=== PATIENT | male | born 1995 | race Caucasian/White ===

== ENCOUNTER 2018-04-04 17:23 | Emergency (ER) | payer OTHER ==
[2018-04-04 17:31] VITALS: BP 135/71; PULSE 85; TEMP 98.9; BMI 34.8
[2018-04-04] MEDS ORDERED: IBUPROFEN 400 MG TABLET (FP) PO ONE ×2 (17:55→18:01)
--- NOTE | 2018-04-04 17:59 | PDOC ---
History of Present Illness - General Chief Complaint: Injury Stated Complaint: left knee pain Time Seen by Provider: 04/04/18 17:36 - History of Present Illness Initial Comments: 04/04/18 18:07 Chief complaint: Left knee pain History of present illness: Slipped on the ice yesterday, twisted his left knee. Pain and swelling since then. Ambulating but with moderate limp. Review of systems: Denies distal numbness tingling pain or weakness of the lower leg. Denies any other injuries or pain including injuries or pain to the neck had chest abdomen spine pelvis or other extremities Past medical history: Torn left anterior cruciate ligament, no surgery. Otherwise no active medical or surgical problems Social/family history reviewed and noncontributory Physical exam: Alert and oriented well-developed well-nourished no acute distress cheerful and cooperative Afebrile, vital signs normal Left knee: There is a [id number] effusion. There is no deformity. No erythema or warmth. Evaluation of the ligaments is limited due to guarding and spasm. However, there is no point tenderness over the medial or lateral collaterals. There is a suspected laxity of the ACL with the Lockman lacking a firm endpoint. Distal pulses full. No distal sensory or motor deficits. Range of motion of the knee appears intact, but somewhat limited in flexion due to the effusion. Impression: Sprain versus tear ACL. Rule out fracture Plan: X-ray. If no fracture, Bryon and knee immobilizer, rest ice and Motrin, orthopedic follow-up. Past History - Past Medical History Allergies/Adverse Reactions: Allergies Allergy/AdvReac Type Severity Reaction Status Date / Time No Known Allergies Allergy Verified 04/04/18 17:24 Home Medications: Ambulatory Orders Ibuprofen 800 mg PO TID #20 tablet 04/04/18 Asthma: Yes COPD: No - Suicide/Smoking/Psychosocial Hx Smoking Status: No Smoking History: Current some day smoker Have you smoked in the past 12 months: Yes Number of Cigarettes Smoked Daily: 1 Information on smoking cessation initiated: No 'Breaking Loose' booklet given: 11/27/15 Hx Alcohol Use: No Drug/Substance Use Hx: No *Physical Exam - Vital Signs Last Vital Signs Temp Pulse Resp BP Pulse Ox 98.9 F 85 20 135/71 98 04/04/18 17:23 04/04/18 17:23 04/04/18 17:23 04/04/18 17:23 04/04/18 17:23 Moderate Sedation - Procedure Monitoring Vital Signs: Procedure Monitoring Vital Signs Temperature 98.9 F 04/04/18 17:23 Pulse Rate 85 04/04/18 17:23 Respiratory Rate 20 04/04/18 17:23 Blood Pressure 135/71 04/04/18 17:23 O2 Sat by Pulse Oximetry (%) 98 04/04/18 17:23 Medical Decision Making - Medical Decision Making 04/04/18 18:34 X-ray negative Bryon wrap applied. Immobilizer. Patient adequately ambulatory. Ibuprofen to pharmacy. Orthopedic referral. Discharge with significant other in no significant pain. *DC/Admit/Observation/Transfer Diagnosis at time of Disposition: Sprain of knee, cruciate ligament Qualifiers: Encounter type: initial encounter Laterality: left Qualified Code(s): S83.502A - Sprain of unspecified cruciate ligament of left knee, initial encounter - Discharge Dispostion Disposition: HOME Condition at time of disposition: Improved Decision to Admit order: No - Prescriptions Prescriptions: Ibuprofen 800 mg PO TID #20 tablet - Referrals Referrals: Merrick Ramirez MD [Staff Physician] - 1 week - Patient Instructions Printed Discharge Instructions: DI for Knee Sprain, How to Apply an Bryon Wrap, How to Use a Knee Immobilizer - Post Discharge Activity Forms/Work/School Notes: Back to Work
== END 2018-04-04 18:41 | disposition home or self-care (01) ==
LOC: FER 17:23
PROC: 2W3RX1Z Immobilization of Left Lower Leg using Splint (ICD-10-PCS; principal; 2018-04-04)
DX: S83.502A Sprain of unspecified cruciate ligament of left knee, initial encounter (principal); W00.0XXA Fall on same level due to ice and snow, initial encounter; Y93.89 Activity, other specified; Y92.89 Other specified places as the place of occurrence of the external cause
CPT/HCPCS: 73560-TC-LT-FY; 99282-25

== ENCOUNTER 2018-10-17 05:16 | Day surgery (SDC) | payer OTHER ==
[2018-10-08 13:27] VITALS: BMI 34.8
[2018-10-17] MEDS ORDERED: DEXAMETHASONE SOD PHOSPHATE/PF 10 MG/ML SDV ONE (07:02)
[2018-10-17] MEDS ORDERED: BUPIVACAINE HCL/PF 0.5% (5 MG/ML) 30 ML VIAL IJ ONE (07:02)
[2018-10-17] MEDS ORDERED: MIDAZOLAM HCL 2 MG/2 ML SINGLE DOSE VIAL ONE ×2 (07:24)
[2018-10-17] MEDS ORDERED: PROPOFOL 20 ML ONE ×3 (08:24→08:33)
[2018-10-17] MEDS ORDERED: HYDROmorphone HCl 2 MG/ML VIAL ONE ×2 (08:33→09:13)
[2018-10-17] MEDS ORDERED: oxyCODONE HCL 5 MG TABLET PO PRN (09:27)
[2018-10-17] MEDS ORDERED: ONDANSETRON 4 MG/2 ML VIAL IVPUSH PRN (09:27)
[2018-10-17] MEDS ORDERED: LACTATED RINGERS SOLUTION 1,000 ML IV SCH (09:30)
--- NOTE | 2018-10-17 10:14 | HP ---
[facility] - Chief Complaint Chief Complaint: left knee pain/instability - Past Medical History Allergies/Adverse Reactions: Allergies Allergy/AdvReac Type Severity Reaction Status Date / Time No Known Allergies Allergy Verified 10/17/18 06:35 - Current Medications Current Medications: Home Medications Medication Instructions Recorded Cetirizine HCl [Zyrtec -] 10 mg PO DAILY 10/08/18 Dupilumab [Dupixent] 300 mg SQ ASDIR 10/08/18 Oxycodone HCl/Acetaminophen 1 - 2 tab PO Q6H #30 tab MDD 6 10/17/18 [Percocet 5-325 mg Tablet] Satellite Physical Exam - Physical Examination Vital Signs: Vital Signs Period Temp Pulse Resp BP Sys/Jung Pulse Ox Last 24 Hr 98.4 F 84 16 134/75 98 General Appearance: Well Nourished, Well Developed, Alert & Oriented x3 ENT: Clear Lung: Normal air movement Heart: Regular rate & rhythm Extremities: Other (left knee- + swelling, + ttp, + macey, + ant draw, + pivot , nvi, MRI + acl tear) Neurological: Intact, Alert, Oriented Satellite Impression/Plan - Impression/Plan Impression: left knee acl tear Operative Procedure: left knee arthroscopy with ACL reconstruction using BTB autograft Date to be Performed: 10/17/18
--- NOTE | 2018-10-17 10:15 | OP ---
Operative Note - Note: Operative Date: 10/17/18 ([facility]) Pre-Operative Diagnosis: left knee acl tear Operation: left knee arthroscopy with ACL reconstruction using BTB autograft Post-Operative Diagnosis: Same as Pre-op Surgeon: Alessandro King Irrigation Installation Specialist: Woody Pickett ([facility]) Anesthesia: General, Local Specimens Removed: shavings Estimated Blood Loss (mls): 5 (tourniquet) Operative Report Dictated: Yes
[2018-10-17 12:38] VITALS: TEMP 98
[2018-10-17] MEDS ORDERED: oxyCODONE HCL 5 MG TABLET ONE (12:47)
[2018-10-17] MEDS ORDERED: CEFAZOLIN 3 GM in DEXTROSE 5%-WATER 100 ML IVPB ONE (13:00)
[2018-10-17 15:31] VITALS: BP 144/55; PULSE 100
--- NOTE | 2018-10-17 16:53 | OP ---
DATE OF OPERATION: 10/17/2018 PREOPERATIVE DIAGNOSIS: Left anterior cruciate ligament tear. POSTOPERATIVE DIAGNOSIS: Left anterior cruciate ligament tear. PROCEDURE: Left anterior cruciate ligament reconstruction with [id number] autograft harvesting. SURGICAL ATTENDING: Alessandro iKng MD CHIEF MEDICAL OFFICER: AALIYAH Cormier SECOND SAP TREASURY CONSULTANT: Elroy Wasserman MD ANESTHESIA: Regional and general. CLOSURE: Arthrex metallic interference screw fixation for graft, 0 Vicryl for tendon, 2-0 Vicryl for paratenon, 3-0 Monocryl for skin with skin glue. DESCRIPTION OF PROCEDURE: Patient was taken to the operating room on October 17, 2018. General anesthesia and regional was administered by the anesthesiologist. IV Kefzol administered prophylactically prior to the case. Well-padded pneumatic tourniquet was placed on the left proximal thigh. The left lower extremity was prepped and draped in the usual sterile fashion. Prior to surgery, the patient's exam consisted of a 2+ Grupo, 2+ pivot shift, and good stability varus, valgus. First, the graft was harvested. A 6-cm longitudinal midline incision centered over the patella tendon was incised. Hemostasis achieved with Bovie cautery. Sharp dissection was carried down from the mid tibial tubercle to the mid patella with sufficient flaps laterally to expose the tendon. Central 10 mm of the tendon was harvest using a 10-mm double blade, 10 x 25-mm plugs were harvested both from the tibia and from the patella using micro oscillating saw. Two drill holes were placed through each of the plugs and passage of No. 2 FiberWire traction sutures were applied. Graft was fashioned to snugly fit through a 10-mm sizer and was placed on the back table for later use. The rent in the patella tendon was closed using No. 1 Vicryl suture. An L was made in the periosteum 1 cm medial to the tibial tubercle for later tibial tunnel placement. Next, the arthroscopic portion of the case was performed. Superolateral and medial lateral infrapatellar portal sites were then made with a 15 blade flat, blunt trocar. The infrapatellar portals were made through the previously made incision. Outflow trocar was superolaterally, scope trocar was inferolaterally, and the working portal was inferomedial portal. The pouch was visualized to be clean. The medial and lateral gutters were visualized to be clean. The undersuface of the patella and trochlea were visualized to be intact. With valgus stress on the knee, the medial compartment was entered. The medial meniscus was visualized and probed, found to be intact. The medial femoral condyle was run and found to be intact as was the medial tibial plateau. In a [id number] position, lateral compartment was entered. Lateral meniscus was visualized and probed and found to be intact. The lateral femoral condyle was run and found to be intact as was the lateral tibial plateau. At 90 degrees, the ACL was found to be completely deficient and torn. Its stump was debrided using a shaver. A notchplasty was then performed gaining sufficient width and height to perform the procedure and to visualize the appropriate femoral tunnel position. Using a 10-mm Retrocutter, a 10-mm diameter tunnel was made just anterior to the PCL. All bone fragments were debrided out of the knee using the shaver. Any soft tissue in and around the hole was additionally debrided arthroscopically. A carrot was then placed in the tunnel to allow pressurization of the joint. With the knee flexed to 120 degrees, an was placed through the AM portal in the appropriate aspect of the notch using the 7-mm offset guide until it exited the anterolateral distal thigh. It was overreamed with a 10-mm flat reamer. All bone fragments were removed. Excellent position posteriorly was visualized with a good posterior wall. A Shuttle stitch was placed through the eyelet holes of each pin so it excited the anterolateral distal thigh and was then pulled down the tibial tunnel exiting the tibia. The traction stitch was then used to pull the graft up into the knee. An 8 x 25-mm femoral screw with a sheath was used to fixate the femoral screw. This was done with the knee flexed at 120 degrees. Excellent fixation was obtained. The knee was taken through a range of motion so as not to impinge on the PCL and on the notch throughout range of motion. With a 20-degree position of the knee and posterior drawer being applied, a 9 x 25-mm fully threaded tibial screw was placed between the tibial bone plug and the tibial tunnel achieving excellent fixation. The knee was taken through a range of motion and found to have full extension to full flexion, negative Grupo, negative pivot shift, negative anterior drawer, and no impingement on the notch throughout. The knee was drained of the fluid. The donor sites were packed with StimuBlast putty. The peritenon was closed using 2-0 Vicryl. The periosteum for the tibial tunnel was closed using 0 Vicryl. Subcutaneous was closed using 2-0 Vicryl and 3-0 Monocryl subcuticular with skin glue for skin, 4-0 undyed Vicryl for the superolateral outflow portal once the trocar was pulled. Sterile pressure dressing followed by a knee immobilizer was applied. Total tourniquet time was less than an hour. No complications. Saige [id number]
== END 2018-10-17 14:30 | disposition home or self-care (01) ==
LOC: JASU-SURG 05:16
PROVIDERS: ATTEND Orthopaedic Surgery
PROC: 0QUF07Z Supplement Left Patella with Autologous Tissue Substitute, Open Approach (ICD-10-PCS; 2018-10-17)
PROC: 0MSP4ZZ Reposition Left Knee Bursa and Ligament, Percutaneous Endoscopic Approach (ICD-10-PCS; principal; 2018-10-17 08:49)
DX: S83.512A Sprain of anterior cruciate ligament of left knee, initial encounter (principal); X58.XXXA Exposure to other specified factors, initial encounter; Y93.9 Activity, unspecified; Y92.9 Unspecified place or not applicable; Y99.9 Unspecified external cause status
CPT/HCPCS: 20900; 29888; C1713; 94760; 97116-GP

== ENCOUNTER 2022-12-22 04:56 | Day surgery (SDC) | payer OTHER ==
[2022-12-21 09:16] VITALS: BMI 33.9
[~2022-12-22 04:56] MED LIST: LIDOCAINE 1%/EPI 1:100000 (50 ML MULTI DOSE VIAL) INF ONE; OXYMETAZOLINE 0.05% NASAL SOLUTION 15 ML BOTTLE NS ONE
[2022-12-22] MEDS ORDERED: FENTANYL CITRATE/PF 50 MCG/ML VIAL ONE ×5 (11:38→14:01)
[2022-12-22] MEDS ORDERED: MIDAZOLAM HCL 2 MG/2 ML SINGLE DOSE VIAL ONE (11:38)
[2022-12-22] MEDS ORDERED: PROPOFOL 40 ML ONE (11:39)
[2022-12-22] MEDS ORDERED: LIDOCAINE HCL/PF 2% SDV 5ML VIAL ONE (11:43)
[2022-12-22] MEDS ORDERED: HYDROmorphone HCl 2 MG/ML VIAL ONE (11:46)
[2022-12-22] MEDS ORDERED: ROCURONIUM BROMIDE 50 MG/5 ML SYRINGE ONE (11:50)
[2022-12-22] MEDS ORDERED: LIDOCAINE 1%/EPI 1:100000 (50 ML MULTI DOSE VIAL) INF ONE ×2 (11:58)
[2022-12-22] MEDS ORDERED: ceFAZolin SODIUM 1 GM VIAL ONE (12:00)
[2022-12-22] MEDS ORDERED: DEXAMETHASONE SOD PHOSPHATE 4 MG/1 ML VIAL ONE (12:00)
[2022-12-22] MEDS ORDERED: OXYMETAZOLINE 0.05% NASAL SOLUTION 15 ML BOTTLE NS ONE (12:04)
[2022-12-22] MEDS ORDERED: NEOSTIGMINE METHYLSULFATE 0.5 MG/1 ML - 10 ML MDV ONE (12:27)
[2022-12-22] MEDS ORDERED: PROPOFOL 20 ML ONE (12:32)
[2022-12-22] MEDS ORDERED: LACTATED RINGERS SOLUTION 1,000 ML IV SCH (13:15)
[2022-12-22] MEDS ORDERED: oxyCODONE HCL 5 MG TABLET PO PRN (13:15)
[2022-12-22] MEDS ORDERED: ALBUTEROL SO4 0.083% IH SOL 2.5 MG/3 ML VIAL.NEB. NEB ONE (13:34)
[2022-12-22 15:42] VITALS: PULSE 100; TEMP 98
[2022-12-22 16:12] VITALS: BP 150/93; RESP 16
== END 2022-12-22 16:16 | disposition home or self-care (01) ==
LOC: JASU-SURG 04:56
PROVIDERS: ATTEND Otolaryngology
PROC: 09NM8ZZ Release Nasal Septum, Via Natural or Artificial Opening Endoscopic (ICD-10-PCS; principal; 2022-12-22 12:00)
DX: J34.2 Deviated nasal septum (principal); R09.81 Nasal congestion; J34.3 Hypertrophy of nasal turbinates
CPT/HCPCS: 88304-TC; 88311-TC; 94760